=== PATIENT | male | born 1985 | race Caucasian/White ===

== ENCOUNTER 2021-09-25 21:30 | Emergency (ER) | payer OTHER ==
[~2021-09-25] VITALS: Ht 167.6 cm; Wt 74.8 kg
[2021-09-25 21:33] VITALS: BP 119/79
--- NOTE | 2021-09-25 21:33 | NUR ---
LEILA LOPEZ. TAKEN TO CHAIR A
--- NOTE | 2021-09-25 22:40 | NUR ---
PATIENT BIB [facility] POLICE DEPT. PATIENT EXAMINED BY DR. LOVETT. PATIENT MEDICALLY CLEARED AND RELEASED IN CUSTODY IN STABLE CONDITION. ORIGINAL PRE-BOOK FORM GIVEN TO OFFICER ADELINE, #[id number].
== END 2021-09-25 22:40 ==
LOC: MED 21:30
DX: F10.129 Alcohol abuse with intoxication, unspecified (principal); Z02.89 Encounter for other administrative examinations; V89.2XXA Person injured in unspecified motor-vehicle accident, traffic, initial encounter; Y93.89 Activity, other specified; Y92.89 Other specified places as the place of occurrence of the external cause; Y99.8 Other external cause status
CPT/HCPCS: 99283